=== PATIENT | female | born 1980 | race Asian ===

== ENCOUNTER → 2018-04-18 | Day surgery (SDC) | payer BC, OTHER, SELFPAY ==
[2018-04-18 10:18] VITALS: BMI 21.2
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
== END | disposition home or self-care (01) ==
LOC: L&D/OP 09:36
PROVIDERS: ATTEND Obstetrics & Gynecology
DX: O99.89 Other specified diseases and conditions complicating pregnancy, childbirth and the puerperium (principal); R10.32 Left lower quadrant pain; M54.9 Dorsalgia, unspecified; Z79.899 Other long term (current) drug therapy; Z3A.21 21 weeks gestation of pregnancy; V89.2XXA Person injured in unspecified motor-vehicle accident, traffic, initial encounter
CPT/HCPCS: 36415; 76815; 85460; 86850; 86900; 86901